=== PATIENT | male | born 1965 | race Caucasian/White ===

== ENCOUNTER 2018-06-09 22:53 | Inpatient (IN) | payer OTHER ==
[~2018-06-09] VITALS: Ht 167.6 cm; Wt 107.3 kg
[2018-06-09] MEDS ORDERED: NITROGLYCERIN (SL) 0.4 MG TAB SL PRN (23:30)
[2018-06-09] MEDS ORDERED: ASPIRIN 325 MG TAB PO STA (23:30)
--- NOTE | 2018-06-09 23:53 | ERD ---
ER Documentation Chief Complaint Chief Complaint chest pain x 4 hours. no sob HPI 52-year-old male presents with chest pain for last 4 hours. Pain radiates to the right chest, described as a burning sensation, there are no alleviating or aggravating factors, there is no associated fever or shortness of breath. Patient states that he had an admission for chest pain about 5 years ago, he has not sure what they actually did. He does have a history of hypertension, but is not on any medications. He denies nausea vomiting, he has had no leg swelling, symptoms are waxing and waning in nature. ROS All systems reviewed and are negative except as per history of present illness. Allergies Allergies: Coded Allergies: No Known Drug Allergies (Verified Allergy, Unknown, 06/09/18) Physical Exam Vitals Vital Signs Date Temp Pulse Resp B/P (MAP) Pulse Ox O2 O2 Flow FiO2 Time Delivery Rate 06/09/18 Nasal 2 23:51 Cannula 06/09/18 98.0 76 18 218/126 98 23:07 (156) Physical Exam Const: No acute distress Head: Atraumatic Eyes: Normal Conjunctiva ENT: Normal External Ears, Nose and Mouth. Neck: Full range of motion. No meningismus. Resp: Clear to auscultation bilaterally Cardio: Regular rate and rhythm, no murmurs Abd: Soft, non tender, non distended. Normal bowel sounds Skin: No petechiae or rashes Back: No midline or flank tenderness Ext: No cyanosis, or edema Neur: Awake and alert Psych: Normal Mood and Affect Result Diagram: 06/09/18 6490 Results 24 hrs Laboratory Tests Test 06/09/18 23:41 White Blood Count 7.8 10^3/ul Red Blood Count 5.52 10^6/ul Hemoglobin 14.6 g/dl Hematocrit 45.7 % Mean Corpuscular Volume 82.8 fl Mean Corpuscular Hemoglobin 26.4 pg Mean Corpuscular Hemoglobin Concent 31.9 g/dl Red Cell Distribution Width 13.7 % Platelet Count 205 10^3/UL Mean Platelet Volume 10.5 fl Immature Granulocytes % 0.300 % Neutrophils % 75.2 % Lymphocytes % 15.8 % Monocytes % 6.0 % Eosinophils % 2.2 % Basophils % 0.5 % Nucleated Red Blood Cells % 0.0 /100WBC Immature Granulocytes # 0.020 10^3/ul Neutrophils # 5.9 10^3/ul Lymphocytes # 1.2 10^3/ul Monocytes # 0.5 10^3/ul Eosinophils # 0.2 10^3/ul Basophils # 0.0 10^3/ul Nucleated Red Blood Cells # 0.0 10^3/ul Current Medications Medications Dose Sig/Adam Start Time Status Last (Trade) Ordered Route PRN Stop Time Admin Dose Reason Admin Aspirin 325 mg ONCE STAT 06/09/18 DC (Aspirin) PO 23:30 06/09/18 23:32 1 tab Q5M UP TO 3 06/09/18 Nitroglycerin DOSES PRN 23:30 SL .CHEST (Nitroglyceri PAIN n (Sl Tab) 0.4 Mg) Procedures/MDM 52-year-old male presents for evaluation of chest pain, pain is nonexertional, and is atypical in nature, however what is concerning is that the patient is hypertensive, with a blood pressure 198, although he was otherwise hemodynamically stable, and on my evaluation was in no acute distress, he has no evidence of acute heart failure, his EKG does show T wave inversions, but no evidence of acute ischemia, given his age and male sex, hypertension, and abnormal EKG, I feel that he warrants admission for further workup, patient will be admitted to Dr. Garg. EKG: EKG time 2314 Rate/Rhythm: Normal Sinus Rhythm QRS, ST, T-waves: T wave inversions noted in V4 V5 V6. Impression: No evidence of ischemia or arrhythmia Repeat EKG: Rate/Rhythm: Normal Sinus Rhythm QRS, ST, T-waves: No changes consistent w/ acute ischemia Impression: No evidence of ischemia or arrhythmia. Noted T wave inversions in V4 V5 V6, no changes from previous Chest X-ray 1V Interpreted by me: Soft Tissue: No acute abnormalities Bones: No acute abnormalities Mediastinum/Cardiac Silhouette/Lungs: Cardiomegaly, otherwise no acute abnormalities Departure Diagnosis: Primary Impression: Chest pain Chest pain type: unspecified Qualified Codes: R07.9 - Chest pain, unspecified Additional Impression: Hypertension Hypertension type: essential hypertension Qualified Codes: I10 - Essential (primary) hypertension Condition: Stable JANETT ROBISON MD Jun 09, 2018 23:53
[2018-06-10] VITALS (13 sets, daily range): BP systolic 150–193; BP diastolic 84–117; PULSE 69–89; RESP 18–22; Ht 167.6 cm; Wt 107.3 kg
[2018-06-10] MEDS ORDERED: morphine 4 MG/ML VIAL IV STA (00:58)
[2018-06-10] MEDS ORDERED: ONDANSETRON 4 MG INJ IV STA (00:58)
[2018-06-10] MEDS ORDERED: POTASSIUM CHLORIDE 20 MEQ POWDER FOR ORAL SOLN PO ONE (04:00)
[2018-06-10] MEDS ORDERED: LABETALOL HCL 20MG INJ IV PRN ×2 (04:00)
[2018-06-10] MEDS ORDERED: NACL 0.9% 3 ML SYG IV SCH (04:00)
[2018-06-10] MEDS ORDERED: HYDROCODONE/APAP (5/325) TAB PO PRN (04:00)
[2018-06-10] MEDS ORDERED: ACETAMINOPHEN 325 MG TAB PO PRN (04:00)
--- NOTE | 2018-06-10 04:02 | HP ---
Date/Time of Note Date/Time of Note DATE: 06/10/18 TIME: 04:00 Assessment/Plan VTE Prophylaxis Pharmacological prophylaxis: other Lines/Catheters IV Catheter Type (from Nrsg): Saline Lock Assessment/Plan Hospital Course Objective Physical exam General: Patient is laying in bed and answers questions appropriately Mentation: Patient is alert and oriented 4, Head: Normocephalic atraumatic Eyes: EOMI, pupils reactive to light Neck: Supple, nontender, midline Respiratory: Clear to auscultation bilaterally Cardiovascular: regular rate, no obvious murmurs Gastrointestinal: non-tender to palpation, bowel sounds heard. Neurological: Moves all extremities spontaneously Skin: No new skin lesions Assessment and plan Chest pain -Rule out ACS -Cardiology consulted, Dr. Brown -Troponin negative, trend troponins -Echocardiogram Hypertensive emergency -Controlled with as needed medications -Will initiate lisinopril for patient as he will likely need BP meds Hypokalemia -Replete as needed Disposition -Continue to trend troponin, cardiology consult pending Result Diagram: 06/09/18 2341 06/09/18 2341 Results 24hrs Laboratory Tests Test 06/09/18 23:41 06/09/18 23:42 White Blood Count 7.8 Red Blood Count 5.52 Hemoglobin 14.6 Hematocrit 45.7 Mean Corpuscular Volume 82.8 Mean Corpuscular Hemoglobin 26.4 L Mean Corpuscular Hemoglobin Concent 31.9 L Red Cell Distribution Width 13.7 Platelet Count 205 Mean Platelet Volume 10.5 H Immature Granulocytes % 0.300 Neutrophils % 75.2 Lymphocytes % 15.8 Monocytes % 6.0 Eosinophils % 2.2 Basophils % 0.5 Nucleated Red Blood Cells % 0.0 Immature Granulocytes # 0.020 Neutrophils # 5.9 Lymphocytes # 1.2 Monocytes # 0.5 Eosinophils # 0.2 Basophils # 0.0 Nucleated Red Blood Cells # 0.0 Sodium Level 142 Potassium Level 3.2 L Chloride Level 101 Carbon Dioxide Level 32 H Anion Gap 9 Blood Urea Nitrogen 20 Creatinine 0.94 Est Glomerular Filtrat Rate mL/min > 60 Glucose Level 119 Calcium Level 8.8 Total Bilirubin 0.7 Direct Bilirubin 0.00 Indirect Bilirubin 0.7 Aspartate Amino Transf (AST/SGOT) 40 Alanine Aminotransferase (ALT/SGPT) 52 Alkaline Phosphatase 134 H Troponin I 0.021 B-Type Natriuretic Peptide 216 H Total Protein 7.6 Albumin 4.5 Globulin 3.10 Albumin/Globulin Ratio 1.45 Lipase 64 Prothrombin Time 12.0 Prothrombin Time Ratio 0.9 INR International Normalized Ratio 0.88 HPI/ROS Admit Date/Time Admit Date/Time Jun 10, 2018 at 00:51 Hx of Present Illness Patient is a male with no significant past medical history due to not following up with a doctor in many years who presents to [facility] for chest pain. Patient states that the chest pain began approximately 5 PM yesterday evening and lasted until approximately 11 PM last night. Currently patient is completely chest pain-free. Patient denies chest pain, shortness of breath, nausea, vomiting, abdominal pain, leg pain PMH/Family/Social Past Medical History Medications Current Medications Potassium Chloride (Potassium Chloride Pwd/Soln) 40 meq ONCE ONCE PO ; Start 06/10/18 at 04:00; Stop 06/10/18 at 04:01 Hydralazine HCl (Apresoline) 10 mg Q4H PRN IV sbp>160; Start 06/10/18 at 04:00 IV Flush (NS 3 ml) 3 ml PER PROTOCOL IV ; Start 06/10/18 at 04:00 Ondansetron HCl (Zofran Inj) 4 mg Q6H PRN IV NAUSEA/VOMITING; Start 06/10/18 at 04:00 Nitroglycerin (Nitroglycerin (Sl Tab) 0.4 Mg) 1 tab Q5M PRN SL .CHEST PAIN; Start 06/10/18 at 04:00 Acetaminophen (Tylenol Tab) 650 mg Q6H PRN PO .PAIN 1-3 OR TEMP; Start 06/10/18 at 04:00 Acetaminophen/ Hydrocodone Bitart ([place] (5/325)) 1 tab Q6H PRN PO .PAIN 4-6; Start 06/10/18 at 04:00 Morphine Sulfate (morphine) 2 mg Q4H PRN IV .PAIN 7-10; Start 06/10/18 at 04:00 Labetalol HCl (Labetalol) 10 mg Q4H PRN IV sbp>160; Start 06/10/18 at 04:00 Lisinopril (Zestril) 10 mg DAILY PO ; Start 06/10/18 at 09:00; Status UNV Coded Allergies: No Known Drug Allergies (Verified Allergy, Unknown, 06/09/18) Social History Smoking Status: Never smoker Exam/Review of Systems Vital Signs Vitals Vital Signs Date Temp Pulse Resp B/P (MAP) Pulse Ox O2 O2 Flow FiO2 Time Delivery Rate 06/10/18 89 02:59 06/10/18 30 163/99 99 Nasal 2.0 02:12 (120) Cannula 06/09/18 98.0 23:07 JANETT CAMARA Jun 10, 2018 04:02
[2018-06-10] MEDS: hydrALAzine 20 MG INJ IV PRN (04:33)
[2018-06-10] MEDS: ONDANSETRON 4 MG INJ IV PRN (07:04)
[2018-06-10] MEDS: LISINOPRIL 10 MG TAB PO SCH (08:22)
[2018-06-10] MEDS ORDERED: hydrALAzine 20 MG INJ IV PRN (09:30)
[2018-06-10] MEDS ORDERED: POTASSIUM CHLORIDE (SR) 10 MEQ TAB PO ONE (09:30)
--- NOTE | 2018-06-10 09:47 | QN ---
Documentation Comment 52-year-old obese Kinyarwanda-speaking male with a history of no significant past medical history, here with chest pain started yesterday, lasted for 5-6 hours. So far patient has 2 sets of negative troponin. His EKG is negative for any acute ST or T wave abnormalities. Patient is now completely chest pain free. He is not in any acute distress. On review of vital signs, it is noted that patient came in with poorly controlled blood pressure 193/113, likely cause of chest pain. Follow-up 2D echocardiogram. We will replete potassium. At this time, I recommend starting patient on antihypertensives regimen with metoprolol 25 mg twice daily. Patient would also benefit from a formal cardiology for evaluation. Patient was counseled on weight reduction for underlying obesity, will also follow-up A1c, lipid panel. Patient was seen in collaboration with Dr. Roa. JOVANI TURPIN NP Jun 10, 2018 09:47
[2018-06-10] MEDS: ASPIRIN 81 MG TAB PO SCH (09:52)
[2018-06-10] MEDS: METOPROLOL 25 MG TAB PO SCH ×2 (09:53→20:35)
--- NOTE | 2018-06-10 14:03 | RADRPT ---
Echocardiogram Report Patient Name: DEEPTI FULLERPatient ID: [id number] : 1965 (52y 11m)Study Date: 06/10/2018 8:07:53 AM Gender: MAccession #: [id number] Tech: Tanmay [facility] Location: [address] Ref.Physician: JANETT CAMARA Height(Cm): BSA: Weight(Kg): Quality: AdequateAccount #: Procedures: Echocardiographic Report: Transthoracic echocardiogram with complete 2D, M-Mode, and doppler examination. Indications: Chest Pain. Measurements: 2D/M Mode Doppler Measurement Value Normal Range Measurement Value Normal Range LVIDd 2D 5.6 [ 4.2 - 5.8 ] cm AV Peak Álvaro 1.5 [ 100.0 - 170.0 ] cm/sec LVIDs 2D 4.2 [ 2.5 - 4.0 ] cm AV Peak PG 8.0 [ 2.0 - 9.0 ] mmHg LVPWd 2D 1.1 [ 0.6 - 1.0 ] cm LVOT Peak Álvaro 1.0 [ 70.0 - 110.0 ] cm/sec IVSd 2D 1.1 [ 0.6 - 1.0 ] cm LVOT Peak PG 4.0 [ 2.0 - 6.0 ] mmHg AoR Diam 2D 3.3 [ 2.6 - 3.4 ] cm MV E Peak Álvaro 0.9 [ 60.0 - 130.0 ] cm/sec EDV 2D 151.0 [ 62.0 - 150.0 ] ml MV A Peak Álvaro 0.7 [ 100.0 - 120.0 ] cm/sec ESV 2D 79.0 [ 21.0 - 61.0 ] ml MV E/A 1.3 [ 0.8 - 1.5 ] ratio EF 2D 47.7 [ 52.0 - 72.0 ] percent MV Decel Time 162 [ 104 - 258 ] msec LA Dimen 2D 4.2 [ 3.0 - 4.0 ] cm Lat E` Álvaro 0.1 [ 10.0 - 15.0 ] cm/sec Lateral E/E` 13.7 [ 1.0 - 2.0 ] ratio Med E` Álvaro 0.1 cm/sec MV E/A 1.3 [ 0.8 - 1.5 ] ratio TR Peak Álvaro 3.0 [ 100.0 - 280.0 ] cm/sec TR Peak PG 36.0 mmHg RVSP 39.0 [ 10.0 - 36.0 ] mmHg Findings: Left Ventricle: Normal left ventricular systolic function. Normal left ventricular cavity size. Left ventricular wall thickness upper limits of normal. Ejection fraction is visually estimated at 55 %. Tissue Doppler/Mitral Doppler indices are consistent with impaired relaxation (Stage I diastolic dysfunction). Right Ventricle: Normal right ventricular size. Normal right ventricular systolic function. Left Atrium: There is mild enlargement of left atrium. Right Atrium: The right atrium is normal in size. Mitral Valve: Mild mitral leaflet calcification. Mild mitral annular calcification. Trace mitral regurgitation. Aortic Valve: No significant aortic stenosis or insufficiency. Aortic cusps appear mildly calcified. Mild aortic valve regurgitation. Tricuspid Valve: Normal appearance of the tricuspid valve. Estimated peak PA systolic pressure 39 mmHg. There is mild tricuspid regurgitation. Pulmonic Valve: Pulmonic valve not well visualized. There is trace pulmonic regurgitation. Pericardium: Normal pericardium with no significant pericardial effusion. Left pleural effusion seen. Aorta: Normal aortic root. IVC: Normal size and normal respiratory collapse consistent with normal right atrial pressure. Conclusions: Normal left ventricular systolic function. Normal left ventricular cavity size. Left ventricular wall thickness upper limits of normal. Ejection fraction is visually estimated at 55 %. Tissue Doppler/Mitral Doppler indices are consistent with impaired relaxation (Stage I diastolic dysfunction). Normal pericardium with no significant pericardial effusion. Left pleural effusion seen. Electronically Signed By: Jensen Lopez 2018-06-10 14:03:00 PST
[2018-06-11] VITALS (13 sets, daily range): BP systolic 139–185; BP diastolic 83–107; PULSE 69–99; RESP 18–20
[2018-06-11] MEDS: ASPIRIN 81 MG TAB PO SCH (08:27)
[2018-06-11] MEDS: METOPROLOL 25 MG TAB PO SCH ×2 (08:28→20:50)
[2018-06-11] MEDS: LISINOPRIL 10 MG TAB PO SCH (08:28)
[2018-06-11] MEDS ORDERED: POTASSIUM CHLORIDE (SR) 20 MEQ TAB PO STA ×2 (09:17→13:18)
--- NOTE | 2018-06-11 13:24 | PN ---
Date/Time of Note Date/Time of Note DATE: 06/11/18 TIME: 13:21 Assessment/Plan VTE Prophylaxis Risk score (from [facility])>0 risk: 4 SCD applied (from Ns): Yes Pharmacological prophylaxis: heparin Lines/Catheters IV C[facility]from [facility] Saline Lock Assessment/Plan Problems: (1) Chest pain Status: Acute Comment: He is ruled out for myocardial infarction and is now on beta-sunil and ARYAN inhibitor. Cardiology has been consulted. Please note I am not as wo rried about his heart but I have another suspicion please see below Qualifiers: Chest pain type: unspecified Qualified Codes: R07.9 - Chest pain, unspec ified (2) Grade I diastolic dysfunction Status: Chronic Comment: Better control blood pressure please see below (3) Hypertension Status: Acute Comment: He has a history of persistent hypokalemia with hypertension. This may very well be Conn syndrome or primary hyperaldosteronism. We will going to get his potassium normalized and check his plasma renin activity and serum pippa sterone in the morning and then discharge him. This will need outpatient follow-up. Qualifiers: Hypertension type: essential hypertension Qualified Codes: I10 - Essential (primary) hypertension (4) Acute hypokalemia Status: Chronic Comment: Replace. Result Diagram: 06/10/18 0509 06/11/18 0504 Results 24hrs Laboratory Tests Test 06/11/18 05:04 Sodium Level 141 Potassium Level 3.2 L Chloride Level 106 Carbon Dioxide Level 29 Anion Gap 6 Blood Urea Nitrogen 23 H Creatinine 1.14 Est Glomerular Filtrat Rate mL/min > 60 Glucose Level 117 # Calcium Level 8.8 Subjective 24 Hr Interval Summary Free Text/Dictation Patient reports he is feeling better but does not feel 100%. He also identifies a history of problems with getting his potassium in the normal range and frequent low potassiums while on blood pressure medicines including ARYAN inhibitors Constitutional: no complaints Respiratory: no complaints Cardiovascular: no complaints Gastrointestinal: no complaints Genitourinary: no complaints Exam/Review of Systems Exam Vitals Vital Signs Date Temp Pulse Resp B/P (MAP) Pulse Ox O2 O2 Flow FiO2 Time Delivery Rate 06/11/18 74 13:04 06/11/18 98.4 18 163/104 93 11:38 (123) 06/11/18 Nasal 2.0 08:45 Cannula Intake and Output 06/10/18 06/10/18 06/11/18 1515:00 23:00 07:00 IntakeIntake Total 360 ml 340 ml OutputOutput Total 300 ml BalanceBalance 60 ml 340 ml Constitutional: alert, oriented Respiratory: clear to auscultation, normal air movement Cardiovascular: regular rate and rhythm, nl pulses Gastrointestinal: soft, nl liver, spleen, non-tender Results Results 24hrs Laboratory Tests Test 06/11/18 05:04 Sodium Level 141 Potassium Level 3.2 L Chloride Level 106 Carbon Dioxide Level 29 Anion Gap 6 Blood Urea Nitrogen 23 H Creatinine 1.14 Est Glomerular Filtrat Rate mL/min > 60 Glucose Level 117 # Calcium Level 8.8 Medications Medication Current Medications Hydralazine HCl (Apresoline) 10 mg Q4H PRN IV sbp>160 Last administered on 06/10/18at 04:33; Admin Dose 10 MG; Start 06/10/18 at 04:00 IV Flush (NS 3 ml) 3 ml PER PROTOCOL IV ; Start 06/10/18 at 04:00 Ondansetron HCl (Zofran Inj) 4 mg Q6H PRN IV NAUSEA/VOMITING Last administered on 06/10/18at 07:04; Admin Dose 4 MG; Start 06/10/18 at 04:00 Nitroglycerin (Nitroglycerin (Sl Tab) 0.4 Mg) 1 tab Q5M PRN SL .CHEST PAIN; Start 06/10/18 at 04:00 Acetaminophen (Tylenol Tab) 650 mg Q6H PRN PO .PAIN 1-3 OR TEMP; Start 06/10/18 at 04:00 Acetaminophen/ Hydrocodone Bitart ([place] (5/325)) 1 tab Q6H PRN PO .PAIN 4-6; Start 06/10/18 at 04:00 Morphine Sulfate (morphine) 2 mg Q4H PRN IV .PAIN 7-10; Start 06/10/18 at 04:00 Lisinopril (Zestril) 10 mg DAILY PO Last administered on 06/11/18at 08:28; Admin Dose 10 MG; Start 06/10/18 at 09:00 Aspirin (Aspirin) 81 mg DAILY PO Last administered on 06/11/18at 08:27; Admin Do se 81 MG; Start 06/10/18 at 09:30 Metoprolol Tartrate (Lopressor) 25 mg BID PO Last administered on 06/11/18at 08:28; Admin Dose 25 MG; Start 06/10/18 at 09:30 Hydralazine HCl (Apresoline) 10 mg Q6H PRN IV SBP>160; Start 06/10/18 at 09:30 CATINA WALKER MD Jun 11, 2018 13:24
[2018-06-11] MEDS ORDERED: LISINOPRIL 10 MG TAB PO ONE (13:30)
[2018-06-11] MEDS: POTASSIUM CHLORIDE 100 ML IVPB SCH ×3 (15:26→19:38)
[2018-06-11] MEDS: hydrALAzine 20 MG INJ IV PRN (16:11)
[2018-06-11] MEDS: NITROGLYCERIN (SL) 0.4 MG TAB SL PRN ×2 (17:28→18:30)
[2018-06-11] MEDS: morphine 2 MG INJ IV PRN ×2 (19:38→20:48)
[2018-06-11] MEDS: LISINOPRIL 20 MG TAB PO SCH (20:50)
[2018-06-12] VITALS (10 sets, daily range): BP systolic 124–172; BP diastolic 78–106; PULSE 73–105; RESP 14–18
[2018-06-12] MEDS: hydrALAzine 20 MG INJ IV PRN ×2 (00:18→06:58)
[2018-06-12] MEDS: ONDANSETRON 4 MG INJ IV PRN ×2 (03:52→12:52)
--- NOTE | 2018-06-12 07:37 | PN ---
Date/Time of Note Date/Time of Note DATE: 06/12/18 TIME: 07:32 Assessment/Plan VTE Prophylaxis Risk score (from Ns)>0 risk: 4 SCD applied (from Ns): Yes Pharmacological prophylaxis: heparin Lines/Catheters IV Catheter Type (from [facility] Saline Lock Assessment/Plan Problems: (1) Chest pain Status: Acute Comment: He had more episodes of chest pain. Cardiology was actually requested at the time of admission will be seeing him very shortly. I will make him n .p.o. after breakfast and no caffeine so testing can be performed. Qualifiers: Chest pain type: unspecified Qualified Codes: R07.9 - Chest pain, unspeci fied (2) Acute hypokalemia Status: Chronic Comment: This is been resolved with an extremely high dose of potassium. Given his hypertension were persistent hypokalemia while on remedios inhibitors actually have a suspicion of some type of a hyper aldosterone anemic state. This may very well be primary hyperaldosteronism however full testing is pending at this time. Will consider CT scan of abdomen after cardiac testing (3) Hypertension Status: Acute Comment: Better control with higher dose medications. Qualifiers: Hypertension type: essential hypertension Qualified Codes: I10 - Essential (primary) hypertension Result Diagram: 06/10/18 0509 06/12/18 0500 Results 24hrs Laboratory Tests Test 06/12/18 05:00 Sodium Level 141 Potassium Level 4.2 Chloride Level 107 Carbon Dioxide Level 27 Anion Gap 7 Blood Urea Nitrogen 16 Creatinine 0.73 Est Glomerular Filtrat Rate mL/min > 60 Glucose Level 127 Calcium Level 9.2 Subjective 24 Hr Interval Summary Free Text/Dictation Patient reports that he has a modest odd sensation in his head. Symptoms of chest pain in the late afternoon and early evening yesterday possibly relieved with nitroglycerin. Constitutional: no complaints Eyes: no complaints ENT: no complaints Respiratory: no complaints Cardiovascular: chest pain (Because of chest pain yesterday he describes as a squeezing sensation without palpitations or orthopnea shortness of breath nausea or diaphoresis) Gastrointestinal: no complaints Genitourinary: no complaints Exam/Review of Systems Exam Vitals Vital Signs Date Temp Pulse Resp B/P (MAP) Pulse Ox O2 O2 Flow FiO2 Time Delivery Rate 06/12/18 98.4 87 18 129/89 95 07:17 (102) 06/11/18 Nasal 2.0 21:00 Cannula Intake and Output 06/11/18 06/11/18 06/12/18 1515:00 23:00 07:00 IntakeIntake Total 1000 ml 900 ml BalanceBalance 1000 ml 900 ml Constitutional: alert, oriented Neck: supple, non-tender Respiratory: clear to auscultation, normal air movement Cardiovascular: regular rate and rhythm, nl pulses Gastrointestinal: soft, nl liver, spleen, non-tender Results Results 24hrs Laboratory Tests Test 06/12/18 05:00 Sodium Level 141 Potassium Level 4.2 Chloride Level 107 Carbon Dioxide Level 27 Anion Gap 7 Blood Urea Nitrogen 16 Creatinine 0.73 Est Glomerular Filtrat Rate mL/min > 60 Glucose Level 127 Calcium Level 9.2 Medications Medication Current Medications Hydralazine HCl (Apresoline) 10 mg Q4H PRN IV sbp>160 Last administered on 06/12/18at 06:58; Admin Dose 10 MG; Start 06/10/18 at 04:00 IV Flush (NS 3 ml) 3 ml PER PROTOCOL IV ; Start 06/10/18 at 04:00 Ondansetron HCl (Zofran Inj) 4 mg Q6H PRN IV NAUSEA/VOMITING Last administered on 06/12/18 03:52; Admin Dose 4 MG; Start 06/10/18 at 04:00 Nitroglycerin (Nitroglycerin (Sl Tab) 0.4 Mg) 1 tab Q5M PRN SL .CHEST PAIN Last administered on 06/11/18 18:30; Admin Dose 1 TAB; Start 06/10/18 at 04:00 Acetaminophen (Tylenol Tab) 650 mg Q6H PRN PO .PAIN 1-3 OR TEMP; Start 06/10/18 at 04:00 Acetaminophen/ Hydrocodone Bitart ([place] (5/325)) 1 tab Q6H PRN PO .PAIN 4-6 Last administered on 06/11/18 18:35; Admin Dose 1 TAB; Start 06/10/18 at 04:00 Morphine Sulfate (morphine) 2 mg Q4H PRN IV .PAIN 7-10 Last administered on 06/11/18 19:38; Admin Dose 2 MG; Start 06/10/18 at 04:00 Aspirin (Aspirin) 81 mg DAILY PO Last administered on 06/11/18 08:27; Admin Dose 81 MG; Start 06/10/18 at 09:30 Metoprolol Tartrate (Lopressor) 25 mg BID PO Last administered on 06/11/18at 20:50; Admin Dose 25 MG; Start 06/10/18 at 09:30 Hydralazine HCl (Apresoline) 10 mg Q6H PRN IV SBP>160; Start 06/10/18 at 09:30 Lisinopril (Zestril) 20 mg BID PO Last administered on 06/11/18at 20:50; Admin Dose 20 MG; Start 06/11/18 at 21:00 CATINA WALKER MD Jun 12, 2018 07:37
[2018-06-12] MEDS ORDERED: IOHEXOL 14.3 MG(I)/ML (ADULT) BTL PO ONE (08:00)
[2018-06-12] MEDS: ASPIRIN 81 MG TAB PO SCH (09:28)
[2018-06-12] MEDS: METOPROLOL 25 MG TAB PO SCH (09:28)
[2018-06-12] MEDS: LISINOPRIL 20 MG TAB PO SCH ×2 (10:42→20:22)
--- NOTE | 2018-06-12 14:54 | CONS ---
Assessment/Plan Assessment/Plan Hospital Course (Demo Recall) Chest pain: MN has been ruled out Hypertensive emergency Recommendations Blood pressures currently under very good control with the current regimen is to be continued. Lexiscan stress test will be scheduled for today. Thank you for his referral. We will continue to follow along with you until Dr. Sims returns on Wednesday ABE HARRISON MD [facility] Consultation Date/Type/Reason Admit Date/Time Jun 10, 2018 at 00:51 Date of Consultation: Jun 12, 2018 Type of Consult Cardiology Reason for Consultation chest pain Requesting Provider: CATINA WALKER MD Date/Time of Note DATE: 06/12/18 TIME: 14:50 Hx of Present Illness Interventional cardiology consultation note (covering for Dr Brown) Chief complaint: Chest pain Reason for consult: Chest pain History of present illness: Thank you for this referral. History was obtained from the patient discussion with the family and physicians This is a pleasant 52-year-old gentleman with no known past medical history who presented to emergency room with complaint of anterior severe chest pain. Patient also noted to be severely hypertensive in the emergency room. Since then he has been placed on antihypertensive medication. His pain has improved however he had another episode of chest pain last night. He has been ruled out for myocardial infarction Chest pain is anteriorly started at rest was severe at the time but is improved now. Patient is a poor historian overall. Allergies: No known drug allergies Medications were reviewed as per medical reconciliation sheet Family history: No history of early coronary artery disease Social history: Does not smoke or drink Past medical history: Denies all Review of system: Patient denies all others except for above-mentioned Past Medical History Home Meds No Active Prescriptions or Reported Meds Medications Current Medications Hydralazine HCl (Apresoline) 10 mg Q4H PRN IV sbp>160 Last administered on 06/12/18at 06:58; Admin Dose 10 MG; Start 06/10/18 at 04:00 IV Flush (NS 3 ml) 3 ml PER PROTOCOL IV ; Start 06/10/18 at 04:00 Ondansetron HCl (Zofran Inj) 4 mg Q6H PRN IV NAUSEA/VOMITING Last administered on 06/12/18at 12:52; Admin Dose 4 MG; Start 06/10/18 at 04:00 Nitroglycerin (Nitroglycerin (Sl Tab) 0.4 Mg) 1 tab Q5M PRN SL .CHEST PAIN Last administered on 06/11/18 18:30; Admin Dose 1 TAB; Start 06/10/18 at 04:00 Acetaminophen (Tylenol Tab) 650 mg Q6H PRN PO .PAIN 1-3 OR TEMP; Start 06/10/18 at 04:00 Acetaminophen/ Hydrocodone Bitart ([place] (5/325)) 1 tab Q6H PRN PO .PAIN 4-6 Last administered on 06/11/18 18:35; Admin Dose 1 TAB; Start 06/10/18 at 04:00 Morphine Sulfate (morphine) 2 mg Q4H PRN IV .PAIN 7-10 Last administered on 06/11/18 19:38; Admin Dose 2 MG; Start 06/10/18 at 04:00 Aspirin (Aspirin) 81 mg DAILY PO Last administered on 06/12/18 09:28; Admin Dose 81 MG; Start 06/10/18 at 09:30 Metoprolol Tartrate (Lopressor) 25 mg BID PO Last administered on 06/12/18at 09:28; Admin Dose 25 MG; Start 06/10/18 at 09:30 Hydralazine HCl (Apresoline) 10 mg Q6H PRN IV SBP>160; Start 06/10/18 at 09:30 Lisinopril (Zestril) 20 mg BID PO Last administered on 06/12/18at 10:42; Admin Dose 20 MG; Start 06/11/18 at 21:00 Allergies: Coded Allergies: No Known Drug Allergies (Verified Allergy, Unknown, 06/09/18) Social History Smoking Status: Never smoker Exam/Review of Systems Vital Signs Vitals Vital Signs Date Temp Pulse Resp B/P (MAP) Pulse Ox O2 O2 Flow FiO2 Time Delivery Rate 06/12/18 97.9 74 18 124/78 97 11:29 (93) 06/12/18 Nasal 2.0 07:45 Cannula Intake and Output 06/11/18 06/11/18 06/12/18 1515:00 23:00 07:00 IntakeIntake Total 1000 ml 900 ml BalanceBalance 1000 ml 900 ml Exam Exam General: no acute distress HEENT: NC/AT. pupils are equal. round. NECK: NO JVD. no stridor. CV: RRR. systolic murmur; no gallop or rubs. PULM: no wheezing or rhonchi. GI: SOFT, NT, ND, no rebound or guarding Extremity: trace B/L LE edema. no clubbing. neuro: awake and alert, OX3. Psych: calm and pleasant rectal: deferred : normal Echocardiogram showed Normal left ventricular systolic function. Normal left ventricular cavity size. Left ventricular wall thickness upper limits of normal. Ejection fraction is visually estimated at 55 %. Tissue Doppler/Mitral Doppler indices are consistent with impaired relaxation (Stage I diastolic dysfunction). Normal pericardium with no significant pericardial effusion. Left pleural effusion seen. Electronically Signed By: Jensen Lopez 2018-06-10 14:03:00 PST Labs Result Diagram: 06/10/18 0509 06/12/18 0500 Results 24hrs Laboratory Tests Test 06/12/18 05:00 Sodium Level 141 Potassium Level 4.2 Chloride Level 107 Carbon Dioxide Level 27 Anion Gap 7 Blood Urea Nitrogen 16 Creatinine 0.73 Est Glomerular Filtrat Rate mL/min > 60 Glucose Level 127 Calcium Level 9.2 Medications Medications Current Medications Hydralazine HCl (Apresoline) 10 mg Q4H PRN IV sbp>160 Last administered on 06/12/18at 06:58; Admin Dose 10 MG; Start 06/10/18 at 04:00 IV Flush (NS 3 ml) 3 ml PER PROTOCOL IV ; Start 06/10/18 at 04:00 Ondansetron HCl (Zofran Inj) 4 mg Q6H PRN IV NAUSEA/VOMITING Last administered on 06/12/18at 12:52; Admin Dose 4 MG; Start 06/10/18 at 04:00 Nitroglycerin (Nitroglycerin (Sl Tab) 0.4 Mg) 1 tab Q5M PRN SL .CHEST PAIN Last administered on 06/11/18at 18:30; Admin Dose 1 TAB; Start 06/10/18 at 04:00 Acetaminophen (Tylenol Tab) 650 mg Q6H PRN PO .PAIN 1-3 OR TEMP; Start 06/10/18 at 04:00 Acetaminophen/ Hydrocodone Bitart ([place] (5/325)) 1 tab Q6H PRN PO .PAIN 4-6 Last administered on 06/11/18at 18:35; Admin Dose 1 TAB; Start 06/10/18 at 04:00 Morphine Sulfate (morphine) 2 mg Q4H PRN IV .PAIN 7-10 Last administered on 06/11/18 19:38; Admin Dose 2 MG; Start 06/10/18 at 04:00 Aspirin (Aspirin) 81 mg DAILY PO Last administered on 06/12/18 09:28; Admin Dose 81 MG; Start 06/10/18 at 09:30 Metoprolol Tartrate (Lopressor) 25 mg BID PO Last administered on 06/12/18 09:28; Admin Dose 25 MG; Start 06/10/18 at 09:30 Hydralazine HCl (Apresoline) 10 mg Q6H PRN IV SBP>160; Start 06/10/18 at 09:30 Lisinopril (Zestril) 20 mg BID PO Last administered on 06/12/18at 10:42; Admin Dose 20 MG; Start 06/11/18 at 21:00 ABE HARRISON MD Jun 12, 2018 14:54
[2018-06-12] MEDS ORDERED: REGADENOSON 0.4 MG/5 ML SYG ONE (15:59)
--- NOTE | 2018-06-12 19:05 | TMLRPT ---
DATE: 06/12/2018 INDICATION: Chest pain. DESCRIPTION: Lexiscan was performed as per protocol. FINDINGS: Baseline is normal sinus rhythm with ST-T abnormality. Heart rate baseline is 76, blood p ressure 160/100, heart rate peak stress is 103, blood pressure of 220/107. CONCLUSIONS: Completion of Lexiscan assessment as per protocol. See nuclear medicine result for fin al report. Dictated By: ABE HARRISON MD AV/NTS Conf#: [id number] DID#: [id number] CC: JANETT CAMARA MD;*EndCC*
[2018-06-12] MEDS ORDERED: METOPROLOL 50 MG TAB PO SCH (20:14)
[2018-06-12] MEDS: METOPROLOL 100 MG TAB PO SCH (21:00)
[2018-06-13] VITALS (8 sets, daily range): BP systolic 121–167; BP diastolic 81–107; PULSE 61–79; RESP 18–20
[2018-06-13] MEDS: hydrALAzine 20 MG INJ IV PRN ×2 (00:38→13:46)
[2018-06-13] MEDS: LISINOPRIL 20 MG TAB PO SCH ×3 (09:00→21:52)
[2018-06-13] MEDS: ASPIRIN 81 MG TAB PO SCH ×2 (09:00→11:29)
[2018-06-13] MEDS: METOPROLOL 100 MG TAB PO SCH ×3 (09:00→21:53)
[2018-06-13] MEDS ORDERED: SOD CHLORIDE 0.9% 100 ML ONE (09:38)
[2018-06-13] MEDS ORDERED: IOHEXOL 100 ML ONE (09:38)
--- NOTE | 2018-06-13 14:50 | PN ---
Date/Time of Note Date/Time of Note DATE: 06/13/18 TIME: 14:48 Assessment/Plan VTE Prophylaxis Risk score (from Nsg)>0 risk: 2 SCD applied (from Nsg): Yes Pharmacological prophylaxis: NA/contraindicated Pharm contraindication: low risk/ambulating Lines/Catheters IV Catheter Type (from Nrsg): Saline Lock Assessment/Plan Assessment/Plan 1. Chest pain, negative stress thallium test, resolved 2. HTN, uncontrolled, add norvasc Result Diagram: 06/10/18 0509 06/12/18 0500 Subjective 24 Hr Interval Summary Free Text/Dictation no chest pain or shortness of breath Exam/Review of Systems Exam Vitals Vital Signs Date Temp Pulse Resp B/P (MAP) Pulse Ox O2 O2 Flow FiO2 Time Delivery Rate 06/13/18 97.3 79 20 163/106 97 13:37 (125) 06/12/18 Room Air 18:00 06/12/18 2.0 07:45 Intake and Output 06/12/18 06/12/18 06/13/18 1515:00 23:00 07:00 IntakeIntake Total 480 ml BalanceBalance 480 ml Constitutional: alert, oriented, well developed Psych: no complaints, nl mood/affect Head: normocephalic, atraumatic Eyes: nl conjunctiva, EOMI, nl lids, PERRL ENMT: nl external ears & nose, nl lips & teeth, nl nasal mucosa & septum Neck: supple, non-tender Respiratory: clear to auscultation, normal air movement; No congested cough, No crackles/rales, No diminished breath sounds, No intercostal retraction, No labored breathing, No respirations, No tactile fremitus, No wheezing, No other Cardiovascular: regular rate and rhythm, nl pulses; No bruits, No diastolic murmur, No edema, No gallop, No irregular rhythm, No jugular venous distention (JVD), No murmurs/extra sounds, No rub, No systolic murmur, No S3, No S4, No other Gastrointestinal: soft, nl liver, spleen, non-tender Musculoskeletal: nl extremities to inspection Extremities: normal pulses; No calf tenderness, No cyanosis, No clubbing, No edema, No pitting pedal edema, No palpable cord, No tenderness, No other Neurological: OPERATING ROOM REGISTERED NURSE II-XII intact, nl mental status, nl speech, nl strength Medications Medication Current Medications Hydralazine HCl (Apresoline) 10 mg Q4H PRN IV sbp>160 Last administered on 06/13/18 13:46; Admin Dose 10 MG; Start 06/10/18 at 04:00 IV Flush (NS 3 ml) 3 ml PER PROTOCOL IV ; Start 06/10/18 at 04:00 Ondansetron HCl (Zofran Inj) 4 mg Q6H PRN IV NAUSEA/VOMITING Last administered on 06/12/18 12:52; Admin Dose 4 MG; Start 06/10/18 at 04:00 Nitroglycerin (Nitroglycerin (Sl Tab) 0.4 Mg) 1 tab Q5M PRN SL .CHEST PAIN Last administered on 06/11/18 18:30; Admin Dose 1 TAB; Start 06/10/18 at 04:00 Acetaminophen (Tylenol Tab) 650 mg Q6H PRN PO .PAIN 1-3 OR TEMP; Start 06/10/18 at 04:00 Acetaminophen/ Hydrocodone Bitart ([place] (5/325)) 1 tab Q6H PRN PO .PAIN 4-6 Last administered on 06/11/18 18:35; Admin Dose 1 TAB; Start 06/10/18 at 04:00 Morphine Sulfate (morphine) 2 mg Q4H PRN IV .PAIN 7-10 Last administered on 06/11/18 19:38; Admin Dose 2 MG; Start 06/10/18 at 04:00 Aspirin (Aspirin) 81 mg DAILY PO Last administered on 06/13/18 11:29; Admin Dose 81 MG; Start 06/10/18 at 09:30 Hydralazine HCl (Apresoline) 10 mg Q6H PRN IV SBP>160; Start 06/10/18 at 09:30 Lisinopril (Zestril) 20 mg BID PO Last administered on 06/13/18 11:28; Admin Dose 20 MG; Start 06/11/18 at 21:00 Metoprolol Tartrate (Lopressor) 100 mg BID PO Last administered on 06/13/18 11:28; Admin Dose 100 MG; Start 06/12/18 at 21:00 DEQUAN HARDEN MD Jun 13, 2018 14:50
[2018-06-13] MEDS: AMLODIPINE 5 MG TAB PO SCH (15:11)
[2018-06-14 01:18] VITALS: BP 138/95; PULSE 65; RESP 18
[2018-06-14 07:27] VITALS: BP 155/102; PULSE 71; RESP 20
[2018-06-14] MEDS: LISINOPRIL 20 MG TAB PO SCH (08:19)
[2018-06-14] MEDS: METOPROLOL 100 MG TAB PO SCH (08:19)
[2018-06-14] MEDS: AMLODIPINE 5 MG TAB PO SCH (08:20)
[2018-06-14] MEDS: ASPIRIN 81 MG TAB PO SCH (08:20)
[2018-06-14 09:24] VITALS: BP 150/98; PULSE 62
[2018-06-14] MEDS ORDERED: METO-407 PO (12:29)
[2018-06-14] MEDS ORDERED: AMLO-145 PO (12:29)
[2018-06-14] MEDS ORDERED: LISI-471 PO (12:29)
--- NOTE | 2018-06-14 12:35 | DS ---
Date/Time of Note Date/Time of Note DATE: 06/14/18 TIME: 12:30 Discharge Summary Admission/Discharge Info Admit Date/Time Jun 10, 2018 at 00:51 Discharge Date/Time Discharge Diagnosis 1. Chest pain, noncardiac, resolved, negative stress thallium test 2. HTN, improved, follow up with PCP Patient Condition: Stable Hospital Course Patient is a male with no significant past medical history due to not following up with a doctor in many years who presents to [facility] for chest pain. Patient states that the chest pain began approximately 5 PM yesterday evening and lasted until approximately 11 PM last night. Currently patient is completely chest pain-free. Patient denies chest pain, shortness of breath, nausea, vomiting, abdominal pain, leg pain Troponin negative. Echo unremarkable. Stress thallium test with no perfusion def ect.Chest pain is considered noncardiac. Patient has hypertension that he was not taking antihypertensives at home. Blood pressure is much better controlled with norvasc, metoprolol and lisinopril. Echocardiogram Report Patient Name: DEEPTI FULLER : 1965 (52y 11m) Study Date: 06/10/2018 8:07:53 AM Gender: M Tech: Tanmay [facility] Location: [facility] Ref.Physician: JANETT CAMARA Height(Cm): BSA: Weight(Kg): Quality: Adequate Account #: Procedures: Echocardiographic Report: Transthoracic echocardiogram with complete 2D, M-Mode, and doppler examination. Indications: Chest Pain. Measurements: 2D/M Mode Doppler Measurement Value Normal Range Measurement Value Normal Range LVIDd 2D 5.6 [ 4.2 - 5.8 ] cm AV Peak Álvaro 1.5 [ 100.0 - 170.0 ] cm/sec LVIDs 2D 4.2 [ 2.5 - 4.0 ] cm AV Peak PG 8.0 [ 2.0 - 9.0 ] mmHg LVPWd 2D 1.1 [ 0.6 - 1.0 ] cm LVOT Peak Álvaro 1.0 [ 70.0 - 110.0 ] cm/sec IVSd 2D 1.1 [ 0.6 - 1.0 ] cm LVOT Peak PG 4.0 [ 2.0 - 6.0 ] mmHg AoR Diam 2D 3.3 [ 2.6 - 3.4 ] cm MV E Peak Álvaro 0.9 [ 60.0 - 130.0 ] cm/sec EDV 2D 151.0 [ 62.0 - 150.0 ] ml MV A Peak Álvaro 0.7 [ 100.0 - 120.0 ] cm/sec ESV 2D 79.0 [ 21.0 - 61.0 ] ml MV E/A 1.3 [ 0.8 - 1.5 ] ratio EF 2D 47.7 [ 52.0 - 72.0 ] percent MV Decel Time 162 [ 104 - 258 ] msec LA Dimen 2D 4.2 [ 3.0 - 4.0 ] cm Lat E` Álvaro 0.1 [ 10.0 - 15.0 ] cm/sec Lateral E/E` 13.7 [ 1.0 - 2.0 ] ratio Med E` Álvaro 0.1 cm/sec MV E/A 1.3 [ 0.8 - 1.5 ] ratio TR Peak Álvaro 3.0 [ 100.0 - 280.0 ] cm/sec TR Peak PG 36.0 mmHg RVSP 39.0 [ 10.0 - 36.0 ] mmHg Findings: Left Ventricle: Normal left ventricular systolic function. Normal left ventricular cavity size. Left ventricular wall thickness upper limits of normal. Ejection fraction is visually estimated at 55 %. Tissue Doppler/Mitral Doppler indices are consistent with impaired relaxation (Stage I diastolic dysfunction). Right Ventricle: Normal right ventricular size. Normal right ventricular systolic function. Left Atrium: There is mild enlargement of left atrium. Right Atrium: The right atrium is normal in size. Mitral Valve: Mild mitral leaflet calcification. Mild mitral annular calcification. Trace mitral regurgitation. Aortic Valve: No significant aortic stenosis or insufficiency. Aortic cusps appear mildly calcified. Mild aortic valve regurgitation. Tricuspid Valve: Normal appearance of the tricuspid valve. Estimated peak PA systolic pressure 39 mmHg. There is mild tricuspid regurgitation. Pulmonic Valve: Pulmonic valve not well visualized. There is trace pulmonic regurgitation. Pericardium: Normal pericardium with no significant pericardial effusion. Left pleural effusion seen. Aorta: Normal aortic root. IVC: Normal size and normal respiratory collapse consistent with normal right atrial pressure. Conclusions: Normal left ventricular systolic function. Normal left ventricular cavity size. Left ventricular wall thickness upper limits of normal. Ejection fraction is visually estimated at 55 %. Tissue Doppler/Mitral Doppler indices are consistent with impaired relaxation (Stage I diastolic dysfunction). Normal pericardium with no significant pericardial effusion. Left pleural effusion seen. Electronically Signed By: Jensen Lopez 2018-06-10 14:03:00 PST ROCEDURE: LEXISCAN MYOCARDIAL PERFUSION STUDY CLINICAL INDICATION: 52 -year-old patient with chest pain. TECHNIQUE: Lexiscan 0.4 mg intravenously separate acquisition, gated myocardial perfusion SPECT using 29.3 mCi intravenously at stress and 9.8 mCi intravenously at rest was performed using the rest/stress sequence. Poststress SPECT images were obtained in the supine position. COMPARISON: No prior studies available. FINDINGS: Perfusion images reveal no evidence of perfusion defects. Poststress gated SPECT images demonstrate no wall motion abnormalities. RPTAT:HJJR IMPRESSION: 1. No evidence of perfusion defects. 2. No wall motion abnormalities. 3. The left ventricle ejection fraction at stress is 42 % . Physician Heide Date Time Electronically viewed and signed by Physician Heide on 06/12/2018 17:08 JR/ CC: ABE HARRISON MD [id number] Home Meds Active Scripts Metoprolol Tartrate* (Lopressor*) 100 Mg Tablet, 100 MG PO BID for 30 Days, TAB Prov:DEQUAN HARDEN MD 06/14/18 Lisinopril* (Lisinopril*) 20 Mg Tablet, 40 MG PO DAILY for 30 Days, TAB Prov:DEQUAN HARDEN MD 06/14/18 Amlodipine Besylate* (Amlodipine Besylate*) 5 Mg Tablet, 5 MG PO DAILY for 30 Days, TAB Prov:DEQUAN HARDEN MD 06/14/18 Follow-up Plan PCP in one week cardiology in one week Primary Care Provider Care Physician No Primary DEQUAN HARDEN MD Jun 14, 2018 12:35
[2018-06-14 13:39] VITALS: BP 141/95; PULSE 62; RESP 20
== END 2018-06-14 14:15 | disposition home or self-care (01) | DRG 305 ==
LOC: E/R 22:53 → 6WM 06-10 00:51 → 2NE 06-12 17:49
PROVIDERS: ADMIT Internal Medicine; ATTEND Internal Medicine
DX: I16.1 Hypertensive emergency (principal); I50.32 Chronic diastolic (congestive) heart failure; R07.89 Other chest pain; I11.0 Hypertensive heart disease with heart failure; E87.6 Hypokalemia
CPT/HCPCS: 36415; 70450; 71045; 74170; 78452; 80048; 80053; 80061; 82088; 83036; 83690; 83735; 83880; 84244; 84443; 84484; 85025; 85610; 93005; 93017; 93306; A9500; A9505; J0360; J2270; J2405; J2785; J3480; Q9967